=== PATIENT | male | born 1960 | race Caucasian/White ===

== ENCOUNTER 2022-03-02 08:01 | Outpatient (CLI) | payer BC, SELFPAY ==
--- NOTE | 2022-03-02 08:00 | CRLHL7_ITS ---
For Patients: As a result of the Century Cures Act, medical imaging exams and procedure reports are released immediately into your electronic medical record. You may view this report before your referring provider. If you have questions, please contact your health care provider. INDICATION: Screening for AAA (abdominal aortic aneurysm) COMPARISON: none TECHNIQUE: Ba scale and color Doppler images were acquired of the abdominal aorta and iliac arteries. FINDINGS: Proximally, the aorta measures 2.4 x 2.8 cm in diameter, mid 2.0 x 1.9 cm, and distally measures 2.1 x 1.9 cm. The common iliac arteries are patent and measure 1.0 x 1.5 cm on the right and 1.1 x 1.1 cm in diameter on the left. There are no suspicious periaortic masses. IMPRESSION: No evidence of abdominal aortic aneurysm. Dictated by Vish Rodgers MD @ 03/02/2022 11:27:00 AM (Electronically Signed)
== END 2022-03-02 08:02 | disposition home or self-care (01) ==
LOC: RAD 08:02
PROVIDERS: Visit Provider Physician Assistant Medical
DX: Z82.49 Family history of ischemic heart disease and other diseases of the circulatory system (principal); Z87.891 Personal history of nicotine dependence
CPT/HCPCS: 76706

== ENCOUNTER 2022-08-08 13:13 | Outpatient (CLI) | payer BC, SELFPAY ==
[2022-08-08 16:40] LABS: D Dimer Quantitative* < 0.27 ug/ml (0.00-0.50)
[2022-08-08 16:46] LABS: Albumin* 4.2 g/dL (3.3-5.0); Chloride* 107 mmol/L (96-114)
[2022-08-08 16:47] LABS: Potassium* 4.4 mmol/L (3.6-5.1); Sodium* 140 mmol/L (135-149)
[2022-08-08 16:49] LABS: Alkaline Phosphatase* 54 U/L (40-150); Aspartate Amino Transferase* 47 U/L (12-35); Bilirubin Total* 0.6 mg/dL (0.1-1.5); Blood Urea Nitrogen* 14 mg/dL (7-30); Carbon Dioxide* 27 mmol/L (20-32); Cholesterol* 157 mg/dL (90-199); Estimated Glomerular Filt Rate 86 ml/min; Total Protein* 6.7 g/dL (6.0-8.3)
[2022-08-08 16:50] LABS: Alanine Aminotransferase* 33 U/L (4-50); Calcium* 8.9 mg/dL (8.4-10.6); Glucose* 83 mg/dL (60-115); HDL Cholesterol* 54 mg/dL (>=40); LDL Cholesterol Calculated 83 mg/dL (<100); Triglycerides* 99 mg/dL (40-149)
== END 2022-08-08 13:14 | disposition home or self-care (01) ==
PROVIDERS: Visit Provider Family Medicine
DX: Z00.00 Encounter for general adult medical examination without abnormal findings (principal); E78.5 Hyperlipidemia, unspecified; I10 Essential (primary) hypertension; R07.9 Chest pain, unspecified; Z72.89 Other problems related to lifestyle
CPT/HCPCS: 80053; 80061; 83735; 85379

== ENCOUNTER 2022-08-09 12:52 | Outpatient (CLI) | payer BC, SELFPAY ==
--- NOTE | 2022-08-09 13:00 | CRLHL7_ITS ---
For Patients: As a result of the Century Cures Act, medical imaging exams and procedure reports are released immediately into your electronic medical record. You may view this report before your referring provider. If you have questions, please contact your health care provider. Indication: Mass, LISSA HX COLON CANCER Technique: Post contrast CT chest. 75 cc Isovue 370 intravenous contrast. Please note that all CT scans at this facility use dose modulation, iterative reconstruction, and/or weight-based dosing when appropriate to reduce radiation dose to as low as reasonably achievable. Comparison: Chest x-ray 08/08/2022 Findings: Spiculated mass anterior left upper lobe measuring 3.1 x 1.9 cm. Linear densities extend from this lesion towards the pleura. Small adjacent ill-defined nodule measuring 5 millimeters, . Underlying COPD/emphysema. Subtle reticulonodular densities within the inferior lingula, . Tiny nodular density left lower lobe measuring 2 millimeters, . Additional ill-defined nodule left lower lobe measuring 4 millimeters, . Possible subtle nodule within the left lower lobe, . No pneumothorax. No infiltrate. No edema. No effusion. Nodule within the right middle lobe measuring 3 millimeters, . Dependent atelectasis or scarring at the right lower lobe. No suspicious osseous lesion. Mediastinal and left hilar adenopathy with lymph nodes measuring up to 1.8 cm. No aortic dissection. Adrenal glands normal. No hepatic lesion. Impression: Highly suspicious 3.1 cm spiculated mass left upper lobe. CT-guided biopsy recommended. Differential diagnosis favors primary lung cancer and less likely metastatic disease. Additional smaller nodules are present bilaterally, indeterminate, measuring up to 4 millimeters. Mediastinal and left hilar adenopathy. Underlying COPD/emphysema. Please note that all CT scans at this facility use dose modulation, iterative reconstruction, and/or weight-based dosing when appropriate to reduce radiation dose to as low as reasonably achievable. Dictated by Vish Rodgers MD @ 08/10/2022 9:26:06 AM (Electronically Signed)
== END 2022-08-09 12:53 | disposition home or self-care (01) ==
LOC: CT 12:53
PROVIDERS: PCP Family Medicine; Visit Provider Family Medicine
DX: R91.8 Other nonspecific abnormal finding of lung field (principal); J43.9 Emphysema, unspecified
CPT/HCPCS: 71260; Q9967

== ENCOUNTER 2022-09-10 13:18 | Outpatient (CLI) | payer BC, SELFPAY ==
[2022-09-10 22:38] LABS: Chloride* 106 mmol/L (96-114); Potassium* 4.6 mmol/L (3.6-5.1); Sodium* 140 mmol/L (135-149)
[2022-09-10 22:41] LABS: Carbon Dioxide* 27 mmol/L (20-32); Creatinine* 0.9 mg/dL (0.5-1.5); Estimated Glomerular Filt Rate 97 ml/min
[2022-09-10 22:42] LABS: Blood Urea Nitrogen* 11 mg/dL (7-30); Calcium* 9.2 mg/dL (8.4-10.6); Glucose* 91 mg/dL (60-115)
== END 2022-09-10 13:19 | disposition home or self-care (01) ==
LOC: FRMREF 13:19
PROVIDERS: PCP Family Medicine; Visit Provider Family Medicine
DX: Z01.818 Encounter for other preprocedural examination (principal); R91.8 Other nonspecific abnormal finding of lung field
CPT/HCPCS: 80048

== ENCOUNTER 2022-10-16 10:13 | Outpatient (CLI) | payer BC, SELFPAY | END 2022-10-16 10:14 | disposition home or self-care (01) | LOC: OP CLINIC 10:14 | PROVIDERS: PCP Family Medicine; Visit Provider Internal Medicine | DX: Z12.11 Encounter for screening for malignant neoplasm of colon (principal); K57.30 Diverticulosis of large intestine without perforation or abscess without bleeding; Z86.010 Personal history of colon polyps; Z85.038 Personal history of other malignant neoplasm of large intestine | CPT/HCPCS: 45378; J2250; J3010 ==

== ENCOUNTER 2023-07-23 08:47 | Outpatient (CLI) | payer BC, SELFPAY | END 2023-07-23 08:48 | disposition home or self-care (01) | LOC: NFLDREF 07-25 06:38 | PROVIDERS: PCP Family Medicine; Referring Provider Family Medicine; Visit Provider Family Medicine | DX: E78.2 Mixed hyperlipidemia (principal) | CPT/HCPCS: 80053; 80061 ==

== ENCOUNTER 2023-08-16 08:00 | Outpatient (RCR) | payer BC, SELFPAY | END 2023-10-29 11:28 | disposition home or self-care (01) | PROVIDERS: PCP Family Medicine; Visit Provider Family Medicine | DX: M25.561 Pain in right knee (principal); Z51.89 Encounter for other specified aftercare | CPT/HCPCS: 97110; 97140; 97161 ==

== ENCOUNTER 2024-07-31 10:14 | Outpatient (CLI) | payer BC, SELFPAY | END 2024-07-31 10:15 | disposition home or self-care (01) | LOC: FRMREF 10:17 | PROVIDERS: PCP Nurse Practitioner Family; Visit Provider Nurse Practitioner Family | DX: E78.5 Hyperlipidemia, unspecified (principal); I10 Essential (primary) hypertension; Z12.5 Encounter for screening for malignant neoplasm of prostate | CPT/HCPCS: 80053; 80061; G0103 ==

== ENCOUNTER 2024-11-23 09:31 | Outpatient (CLI) | payer BC, SELFPAY ==
--- NOTE | 2024-12-01 12:20 | W.PM.SLEEP ---
Sleep Study Details Details Interpreting Provider: Kianna Date of Sleep Study: 11/23/24 Sleep Study Details: STUDY TYPE:? Home unattended ? BMI:? 25 ORDERING PROVIDER:Sugey Hutchison INDICATION:? Concern about sleep apnea ? SLEEP SUMMARY:? 461 minutes monitored RESPIRATORY SUMMARY:? AHI 19 Low oxygen 86 2.6% of study oxygen less than 90% Snoring 93.1% PERIODIC LIMB MOVEMENTS OF SLEEP:? Recorded CARDIAC:? Range 43-101, mean 60.8 beats per minute IMPRESSION:? Moderate obstructive sleep apnea RECOMMENDATION: Treatment options include CPAP, dental appliance and/or airway expansion surgery.
== END 2024-11-23 09:32 | disposition home or self-care (01) ==
PROVIDERS: PCP Nurse Practitioner Family; Visit Provider Otolaryngology
DX: G47.33 Obstructive sleep apnea (adult) (pediatric) (principal)
CPT/HCPCS: 95806

== ENCOUNTER 2025-06-10 13:27 | Outpatient (CLI) | payer BC, SELFPAY | END 2025-06-10 13:28 | disposition home or self-care (01) | LOC: NFLDREF 06-12 19:06 | PROVIDERS: PCP Nurse Practitioner Family; Referring Provider Nurse Practitioner Family; Visit Provider Nurse Practitioner Family | DX: Z12.5 Encounter for screening for malignant neoplasm of prostate (principal); Z72.89 Other problems related to lifestyle; Z13.6 Encounter for screening for cardiovascular disorders | CPT/HCPCS: 80053; 80061; G0103 ==